=== PATIENT | female | born 1945 | race Two or more races ===

== ENCOUNTER 2018-10-06 12:16 | Emergency (ER) | payer MEDICARE, BC ==
[2018-10-06 12:51] VITALS: BP 125/73
--- NOTE | 2018-10-06 13:21 | UC ---
Lower Extremity/Ankle HPI - HPI Summary HPI Summary: 72 yo female with left calf pain x 1week. No trauma. Onset after bending over in garden picking asparagus no CP or sob pain worse proximal lat calf and radiates to foot - History of Current Complaint Chief Complaint: UCLowerExtremity Stated Complaint: SP FALL-LT LEG PAIN Time Seen by Provider: 10/06/18 12:31 Hx Obtained From: Patient Onset/Duration: Gradual Onset, Lasting Days Severity Initially: Mild Severity Currently: Severe Pain Intensity: 10 - with wt bearing Pain Scale Used: 0-10 Numeric Aggravating Factor(s): Standing, Ambulation Alleviating Factor(s): Rest Able to Bear Weight: Yes Legs: 1 - pain 2 - radiation - Allergies/Home Medications Allergies/Adverse Reactions: Allergies Allergy/AdvReac Type Severity Reaction Status Date / Time Sulfa (Sulfonamide Allergy Vomiting Verified 10/06/18 12:42 Antibiotics) Home Medications: Home Medications Antidepressant Med 1 tab PO DAILY 10/06/18 [History] Linaclotide [Linzess] 72 mcg PO DAILY 10/06/18 [History Confirmed 10/06/18] Omeprazole 20 mg PO DAILY 10/06/18 [History Confirmed 10/06/18] hydrOXYzine HCL TAB* [Atarax 10 MG TAB*] 10 mg PO TID PRN 10/06/18 [History Confirmed 10/06/18] PMH/Surg Hx/FS Hx/Imm Hx Previously Healthy: Yes - DDD/DJD, sciatica GI/ History: Gastroesophageal Reflux - Surgical History Surgical History: Yes Surgery Procedure, Year, and Place: hysterectomy. [facility]. appy - Family History Known Family History: Positive: Hypertension - Social History Alcohol Use: None Alcohol Amount: none in 37 years Substance Use Type: None Smoking Status (MU): Former Smoker When Did the Patient Quit Smoking/Using Tobacco: 33 years ago Review of Systems All Other Systems Reviewed And Are Negative: Yes Constitutional: Positive: Negative Skin: Positive: Negative, Rash ENT: Positive: Negative Respiratory: Positive: Negative Cardiovascular: Positive: Negative Gastrointestinal: Positive: Negative Genitourinary: Positive: Negative Motor: Positive: Negative Neurovascular: Positive: Negative Musculoskeletal: Positive: Myalgia Neurological: Positive: Negative Psychological: Positive: Negative Physical Exam Triage Information Reviewed: Yes Appearance: Well-Appearing, No Pain Distress, Well-Nourished Vital Signs: Initial Vital Signs Temp 98.4 F 10/06/18 12:44 Pulse 75 10/06/18 12:44 Resp 18 10/06/18 12:44 BP 125/73 10/06/18 12:44 Pulse Ox 99 10/06/18 12:44 Vital Signs Reviewed: Yes Eyes: Positive: Conjunctiva Clear ENT: Positive: Normal ENT inspection. Negative: Nasal congestion, Nasal drainage, Trismus, Muffled voice, Hoarse voice Neck: Positive: Supple, Nontender, No Lymphadenopathy Respiratory: Positive: Lungs clear, Normal breath sounds, No respiratory distress, No accessory muscle use Cardiovascular: Positive: RRR, No Murmur Musculoskeletal: Positive: Other: - left calf swollen and tender /acchiles intact Neurological Exam: Normal Neurological: Positive: Alert Psychological Exam: Normal Skin Exam: Normal Diagnostics - Radiology No standard instances Radiology Interpretation Completed By: Radiologist Summary of Radiographic Findings: doppler left leg- no dvt Lower Extremity Course/Dx - Differential Dx/Diagnosis Provider Diagnosis: Strain of gastrocnemius muscle of left lower extremity Discharge - Sign-Out/Discharge Documenting (check all that apply): Patient Departure All imaging exams completed and their final reports reviewed: Yes - Discharge Plan Condition: Stable Disposition: HOME Patient Education Materials: Muscle Strain (ED) Referrals: Biju Wilkins MD [Medical Doctor] - If Needed Additional Instructions: cam boot you can order a CHO PAT calf sleeve on line....I think it will help ice twice daily tylenol - Billing Disposition and Condition Condition: STABLE Disposition: Home
== END 2018-10-06 14:23 | disposition home or self-care (01) ==
LOC: UCCORT 12:16
DX: S86.112A Strain of other muscle(s) and tendon(s) of posterior muscle group at lower leg level, left leg, initial encounter (principal); X50.1XXA Overexertion from prolonged static or awkward postures, initial encounter; Y93.H2 Activity, gardening and landscaping; Y92.017 Garden or yard in single-family (private) house as the place of occurrence of the external cause; M19.90 Unspecified osteoarthritis, unspecified site; M54.30 Sciatica, unspecified side; K21.9 Gastro-esophageal reflux disease without esophagitis; Z88.2 Allergy status to sulfonamides; Z87.891 Personal history of nicotine dependence
CPT/HCPCS: 99212; G0463

== ENCOUNTER 2019-06-22 14:02 | Emergency (ER) | payer MEDICARE, BC ==
--- OUTSIDE RECORDS SUMMARY | 2019-06-22 14:13 | XMS REPORT | Summary of Care ---
:1945 Author Organization [facility] Address [address] [place] [id number] Care Team Providers Name Role Phone Jalen Best MD Primary Care Provider Reason for Visit Reason Comments New Patient Joint Pain Diagnostic Medical (Routine) Status Reason Specialty Diagnoses / Referred By Referred To Contact Procedures Contact Authorized Rheumatology Diagnoses Polymyalgia rheumatica [facility] Rheumatology Jalen Sevilla MD [address] [phone] Phone: Encounter Details Date Type Department Care Team Description 05/04/2019 Office Visit [facility] Rheumatology Mia Sweeney MD Polymyalgia rheumatica (Primary Dx); [address] [place] [address] Current chronic [place] [address] [facility] Floor [phone] [place] [address] [phone] Allergies Active Allergy Reactions Severity Noted Date Comments Sulfa Antibiotics 03/19/2019 documented as of this encounter (statuses as of 05/04/2019) Medications Medication Sig Dispensed Refills Start Date End Date Status acetaminophen, TYLENOL, Take 650 mg by 0 Active tablet 325 MG tablet mouth every 6 (six) hours as needed for Pain albuterol (PROVENTIL Inhale 2 puffs 0 Active HFA;VENTOLIN HFA) 108 (90 into the lungs Base) MCG/ACT inhaler every 6 (six) hours as needed for Wheezing Vitamin D-3 Take 2,000 0 Active (CHOLECALCIFEROL) 1000 Units by mouth units CAPS daily tizanidine (ZANAFLEX) 4 Take 4 mg by 0 Active MG tablet mouth every 6 (six) hours as needed venlafaxine (EFFEXOR-XR) Take 150 mg by 0 Active 150 MG 24 hr capsule mouth daily Calcium Carbonate Take by mouth 0 Active (CALCIUM 600 PO) daily hydrOXYzine (ATARAX) 10 Take 10 mg by 0 Active MG tablet mouth every 6 (six) hours as needed for Itching meclizine (ANTIVERT) 25 Take 25 mg by 0 Active MG tablet mouth Four times daily as needed Multiple Vitamin Take 1 tablet 0 Active (MULTIVITAMIN) tablet by mouth daily sucralfate (CARAFATE) 1 g Take 1 g by 0 Active tablet mouth Four times daily omeprazole (PRILOSEC) 20 Take 20 mg by 0 Active MG capsule mouth Twice Daily methylPREDNISolone 4 MG Take 1 tablet 30 tablet 0 05/04/2019 06/03/2019 Active Oral Tablet by mouth daily (MEDROL)Indications: Polymyalgia rheumatica documented as of this encounter (statuses as of 05/04/2019) Active Problems Problem Noted Date Polymyalgia rheumatica 05/04/2019 Current chronic use of systemic steroids 05/04/2019 documented as of this encounter (statuses as of 05/04/2019) Social History Tobacco Use Types Packs/Day Years Used Date Former Smoker Cigarettes 0 Smokeless Tobacco: Former User Tobacco Cessation: Counseling Given: No Alcohol Use Drinks/Week oz/Week Comments Not Currently Sex Assigned at Date Recorded Not on file Job Start Date Occupation Industry Not on file Not on file Not on file Travel History Travel Start Travel End No recent travel history available. documented as of this encounter Last Filed Vital Signs Vital Sign Reading Time Taken Comments Blood Pressure 135/85 05/04/2019 11:53 AM EST Pulse 76 05/04/2019 11:53 AM EST Temperature 36.6 05/04/2019 11:53 AM EST C (97.9 F) Respiratory Rate 16 05/04/2019 11:53 AM EST Oxygen Saturation 96% 05/04/2019 11:53 AM EST Inhaled Oxygen Concentration - - Weight 88 kg (194 lb) 05/04/2019 11:53 AM EST Height 157.5 cm (5' 2") 05/04/2019 11:53 AM EST Body Mass Index 35.48 05/04/2019 11:53 AM EST documented in this encounter Progress Notes Mia Sweeney MD - 05/04/2019 12:00 PM EST Subjective: Patient ID: Amber Monroy is a 73 y.o. female. Chief Complaint: joint pain, PMR HPI 73 year old female referred for PMR, intolerant to prednisone. She was having shoulder and arm pain. She was having trouble getting up from a seated position. Trouble lifting arms up above head. She was then started on prednisone 20mg daily and felt significantly better within 24 hours. She has joint pains in b/l shoulders, radiates down her arm and into hands. No joint swelling. Morning stiffness in the hands for about 2-3 hours. Denies any photosensitivity, oral or nasal ulcers, rashes, alopecia, dry eyes. + dry mouth. Denies any DVT/PE, skin psoriasis, gout. No raynaud's. Past Medical History: Diagnosis Date Anxiety Arthritis Asthma Depression Diabetes mellitus GERD (gastroesophageal reflux disease) Past Surgical History: Procedure Laterality Date APPENDECTOMY CHOLECYSTECTOMY COLONOSCOPY HYSTERECTOMY Family History Problem Relation Age of Onset COPD Father Diabetes Father Social History Tobacco Use Smoking status: Former Smoker Packs/day: 0.00 Types: Cigarettes Smokeless tobacco: Former User Substance Use Topics Alcohol use: Not Currently Drug use: Never Allergies Allergen Reactions Sulfa Antibiotics Current Outpatient Medications Medication Sig Dispense Refill acetaminophen, TYLENOL, tablet 325 MG tablet Take 650 mg by mouth every 6 (six) hours as needed for Pain albuterol (PROVENTIL HFA;VENTOLIN HFA) 108 (90 Base) MCG/ACT inhaler Inhale 2 puffs into the lungs every 6 (six) hours as needed for Wheezing Calcium Carbonate (CALCIUM 600 PO) Take by mouth daily hydrOXYzine (ATARAX) 10 MG tablet Take 10 mg by mouth every 6 (six) hours as needed for Itching meclizine (ANTIVERT) 25 MG tablet Take 25 mg by mouth Four times daily as needed Multiple Vitamin (MULTIVITAMIN) tablet Take 1 tablet by mouth daily omeprazole (PRILOSEC) 20 MG capsule Take 20 mg by mouth Twice Daily sucralfate (CARAFATE) 1 g tablet Take 1 g by mouth Four times daily tizanidine (ZANAFLEX) 4 MG tablet Take 4 mg by mouth every 6 (six) hours as needed venlafaxine (EFFEXOR-XR) 150 MG 24 hr capsule Take 150 mg by mouth daily Vitamin D-3 (CHOLECALCIFEROL) 1000 units CAPS Take 2,000 Units by mouth daily No current facility-administered medications for this visit. Review of Systems Constitutional: Negative for chills and malaise/fever. +fatigue HENT: Negative for sore throat. Eyes: Negative for double vision, pain and discharge. +blurry vision in left eye due to floaters, resolves with glasses Respiratory: Negative for cough, hemoptysis, sputum production and shortness of breath. Cardiovascular: Negative for lower extremity swelling, chest pain and palpitations. Gastrointestinal: Negative for heartburn, nausea, vomiting, abdominal pain constipation, and diarrhea. Genitourinary: Negative for dysuria, hematuria and flank pain. Musculoskeletal: +joint pains. Skin: Negative for rash. Neurological: Negative for dizziness, sensory change, speech change, focal weakness, loss of consciousness, tingling/numbness and weakness. Endo/Heme/Allergies: Does not bruise/bleed easily. Objective: Vitals: 05/04/19 1153 BP: 135/85 Pulse: 76 Resp: 16 Temp: 36.6 C (97.9 F) SpO2: 96% Physical Exam Constitutional: Alert and oriented x3, no acute distress HEENT: Normocephalic, atraumatic, PERRLA Cardiovascular: Regular rate and rhythm, S1 normal and S2 normal. Lungs: Clear to auscultation b/l. No wheezing Abdomen: Soft, non-tender Musculoskeletal: Decreased range of motion of b/l shoulders Neurological: alert and oriented to person, place, and time. Extremities: no edema Skin: Skin is warm and dry. Assessment: 73 year old female referred for PMR, intolerant to prednisone. She was having shoulder and arm pain. She was having trouble getting up from a seated position. Trouble lifting arms up above head. She was then started on prednisone 20mg daily and felt significantly better within 24 hours. Plan: 1. Joint pains secondary to PMR -relief with prednisone. Could not tolerate prednisone due to GI upset. Does not want to take methotrexate. -We can try medrol 4mg daily, she does not want anything higher than 5mg of prednisone -Recommend to take omeprazole 20mg BID as it was recommended in the past - methylPREDNISolone 4 MG Oral Tablet (MEDROL); Take 1 tablet by mouth daily - ALT; Future - AST; Future - CBC and Differential; Future - CCP antiBody; Future - Creatinine with GFR; Future - C-reactive protein; Future - Sedimentation rate, automated; Future - Rheumatoid factor; Future 2. Current chronic use of systemic steroids -Recommend calcium and vitamin d. Side effects of medrol explained including AVN -Plan on care home steroid use - Activities as tolerated. - Fall precautions emphasized. - Diet: low carb/low fat, more greens/vegetables, adequate hydration - Encouraged to maintain good sleep hygiene - Continue other medications as prescribed by PCP and other specialist. - DVT precautions especially long distance travel -RTC: 6-8 weeks documented in this encounter Plan of Treatment Date Type Specialty Care Team Description 06/22/2019 Office Visit Rheumatology Mia Sweeney MD [address] [place] [address] [address] [place] [address] [phone] Name Type Priority Associated Diagnoses Order Schedule ALT Lab Routine Polymyalgia rheumatica 1 Occurrences starting 05/04/2019 until 11/02/2019 AST Lab Routine Polymyalgia rheumatica 1 Occurrences starting 05/04/2019 until 11/02/2019 CBC and Differential Lab Routine Polymyalgia rheumatica 1 Occurrences starting 05/04/2019 until 11/01/2019 CCP antiBody Lab Routine Polymyalgia rheumatica 1 Occurrences starting 05/04/2019 until 11/02/2019 Creatinine with GFR Lab Routine Polymyalgia rheumatica 1 Occurrences starting 05/04/2019 until 11/03/2019 C-reactive protein Lab Routine Polymyalgia rheumatica 1 Occurrences starting 05/04/2019 until 11/03/2019 Sedimentation rate, Lab Routine Polymyalgia rheumatica 1 Occurrences starting automated 05/04/2019 until 11/04/2019 Rheumatoid factor Lab Routine Polymyalgia rheumatica 1 Occurrences starting 05/04/2019 until 11/04/2019 documented as of this encounter Results Not on filedocumented in this encounter Visit Diagnoses Diagnosis Polymyalgia rheumatica - Primary Current chronic use of systemic steroids documented in this encounter
--- OUTSIDE RECORDS SUMMARY | 2019-06-22 14:13 | XMS REPORT | Continuity of Care Document ---
:1945 External Reference #:[id number] Author Name Jalen Best MD Address [address] [place] [address] Care Team Providers Name Role Phone Jose Deluca DR Care Team Information Book Author [phone] Care Team Information Book Author [phone] [facility] Rheumatology Care Team Information Book Author [phone] Problems Active Problems Provider Date Gastroesophageal reflux disease Jalen Best MD Onset: 09/06/2004 Pure hypercholesterolemia Jalen Best MD Onset: 09/06/2004 Anxiety state Jalen Best MD Onset: 09/06/2004 Peptic ulcer without hemorrhage, without Jalen Best MD Onset: 01/21 perforation AND without obstruction Localized, primary osteoarthritis of the Jalen Best MD Onset: 07/01 lower leg Obstructive sleep apnea syndrome Jalen Best MD Onset: 03/10/2010 Family history of diabetes mellitus Jalen Best MD Onset: 02/08/2014 Urgent desire to urinate Jalen Best MD Onset: 02/08/2014 Benign neoplasm of colon Jalen Best MD Onset: 02/08/2014 Intrinsic asthma without status asthmaticus Jalen Best MD Onset: Obesity Jalen Best MD Onset: 01/15/2011 Allergic rhinitis Jalen Best MD Onset: 01/21/2005 Moderate recurrent major depression Jalen Best MD Onset: 01/21/2005 Irritable bowel syndrome Jalen Best MD Onset: 01/21/2005 Vitamin D deficiency Jalen Best MD Onset: 08/25/2015 Osteopenia Jalen Best MD Onset: 09/09/2016 Polymyalgia rheumatica Jalen Best MD Onset: 02/03/2019 Social History Type Date Description Comments Sex Unknown ETOH Use Has consumed alcohol in Past heavy the past Tobacco Use Start: Unknown End: Patient is a former smoker Quit 1983, was 1 PPD Unknown Smoking Status Reviewed: 03/04/18 Patient is a former smoker Quit 1983, was 1 PPD Allergies, Adverse Reactions, Alerts Active Allergies Reaction Severity Comments Date Sulfa Drugs 06/15/2014 Medications Active Medications SIG Qnty Indications Ordering Provider Date Acetaminophen ER 2 by mouth otc M35.3 Nasir, 02/18/2019 650mg twice a day as MD Jalen Tablets ER needed for pain Albuterol Sulfate HFA 2 puffs every 3 8.500gm R06.00 Nasir, 2018 hours as needed MD Jalen 108(90Base) mcg/Act Aerosol J45.909 Vitamin D3 1 by mouth every otc E55.9 Jalen Best, 09/11/2018 2000Unit day Capsules Tizanidine HCL take 1 capsule by 30caps M54.5 Jalen Best, 2018 4mg mouth at bedtime Capsules if needed for muscle spasm or back pain Venlafaxine HCL ER 1 by mouth every 90caps F33.1 Jalen Best, 10/2016 150mg day Caps ER 24HR F41.9 F41.1 Calcium 600 1 pill once a day OTC M85.89 Jalen Best, 03/01/2017 600mg Tablets Hydroxyzine HCL 1 by mouth four 50tabs F41.9 Jalen Best, 2010 10mg times a day as Tablets needed for anxiety F41.1 Meclizine HCL 1 by mouth four 90Tabs Jalen Best, 07/02/2007 25mg times a day as Tablets needed dizziness Multivitamins 1 PO qd Unknown Chewtabs Sucralfate Dissolve In Water, K21.9 Joe Gonzalez MD Powder Take By Mouth 4 Times A Day as Needed For Heartburn Omeprazole 1 by mouth twice 180caps K21.9 Jalen Best, 20mg Capsules day MD DR Jason Wilkinson Unknown Capsules History Medications Prednisone take 1 pill once 100tabs M35.3 Nasir, 02/03/2019 - 5mg daily w/ food, MD Jalen 03/17/2019 Tablets or as directed Prednisone 1 pill by mouth 30tabs M35.3 Nasir, 01/22/2019 - 20mg once a day with MD Jalen 02/03/2019 Tablets food, or as directed Immunizations CPT Code Status Date Vaccine Reaction Lot # [id number] Given 03/24/2019 Influenza Vaccine, Inactivated, Subunit, [place] [address] Given 03/31/2018 Fluzone Highdose Age 65 And Over Preservative & Antibiotic Free 57980 Given 03/20/2017 Fluzone Highdose Age 65 And Over [facility] Preservative & Antibiotic Free 35529 Given 03/31/2015 Fluzone Highdose Age 65 And Over [facility] Preservative & Antibiotic Free 67758 Given 02/28/2015 Prevnar 13 Pneumococal Conjugate Vaccine [id number] 45544 Given 04/26/2014 Afluria Or Fluvirin Flu Vac Intramuscular 29807 Given 04/22/2013 Zoster (Zostavax) 06097 Given 02/05/2013 Pneumococcal 23 Immunization Adult Or Immunosuppressed Patient 44133 Given 06/13/2009 Administration Swine Flu Vaccine H1N1 69396 Given 02/23/1996 Immunization Td 7 Yrs Or Older 94828 Refused 03/04/2018 Fluzone Highdose Age 65 And Over WILL GET AT PHARMACY Preservative & Antibiotic Free Vital Signs Date Vital Result Comment 05/12/2019 3:59pm Body Temperature 97.2 F Weight 194.00 lb BP Systolic Lying Down 130 mmHg HR 72 BP Diastolic Lying Down 80 mmHg HR 72 BP Systolic Sitting 132 mmHg HR 72 BP Diastolic Sitting 80 mmHg HR 72 BP Systolic Standing 128 mmHg HR 76 BP Diastolic Standing 78 mmHg HR 76 Height 62 inches 5'2" BMI (Body Mass Index) 35.5 kg/m2 03/17/2019 11:25am Weight 194.00 lb Heart Rate 74 /min BP Systolic 122 mmHg BP Diastolic 80 mmHg Respiratory Rate 18 /min Height 62 inches 5'2" BMI (Body Mass Index) 35.5 kg/m2 Results Test Acquired Date Facility Test Result H/L Range Note Lipid Treatment 03/10/2019 [facility] Cholesterol 196 mg/dL 50-199 1 Triglycerides 157 mg/dL 30-200 HDL 60 mg/dL 35-85 2 Chol/ HDL Ratio 3.3 ratio Low 3.7-5.6 VLDL 31 mg/dL High 2-29 LDL (Calc) 105 mg/dL High 20-99 3 Alt 6 U/L 3-42 Ast 14 U/L 8-42 CBC with Auto Diff-fcmg 03/10/2019 [facility] WBC 4.9 K/uL 4.1-11.0 RBC 4.18 M/uL 4.00-5.40 Hemoglobin 12.1 gm/dL 12.0-16.0 Hematocrit 37.0 % 36.0-47.0 MCV 88.4 fL 80.0-97.0 MCH 28.9 pg 27.0-32.0 MCHC 32.6 g/dL 32.0-36.0 RDW 14.3 % 11.5-14.5 PLT Count 241 K/ul 140-400 MPV 7.9 FL 7.1-10.7 Neutrophil 57.4 % 35.0-75.0 Lymphocyte 30.4 % 16.0-52.0 Monocyte 9.7 % 2.0-10.0 Eosinophil 2.1 % 0.0-5.0 Basophil 0.4 % 0.0-4.0 Abs Neutrophils 2.8 K/uL 2.1-8.0 Abs Lymphocytes 1.5 K/uL 0.8-5.5 Abs Monocytes 0.5 K/uL 0.1-1.0 Abs Eosinophils 0.1 K/uL 0.0-0.5 Abs Basophils 0.0 K/uL 0.0-0.3 Laboratory test 03/10/2019 [facility] Vitamin D 25 21 ng/mL Low 30-100 4 finding Hydroxy Basic (BMP) 03/10/2019 [facility] Sodium 142 mmol/L 135-146 5 Potassium 4.1 mmol/L 3.5-5.2 Chloride# 105 mmol/L 97-110 6 Carbon Dioxide 30 mmol/L 24-34 Glucose 94 mg/dL 70-105 BUN 16 mg/dL 6-26 Creatinine 0.8 mg/dL 0.5-1.4 Calcium 9.5 mg/dL 8.5-10.5 7 Female Egfr 72 >60 8 Male Egfr 89 >60 9 Anion Gap 7 mmol/L 5-15 10 [facility] test [facility]/hr High 0-20 CRP (C-Reactive) 1.81 mg/dL High 0.00-0.75 CBC with Auto Diff-fcmg [facility].7 K/uL 4.1-11.0 RBC 4.44 M/uL 4.00-5.40 Hemoglobin 13.0 gm/dL 12.0-16.0 Hematocrit 39.5 % 36.0-47.0 MCV 88.9 fL 80.0-97.0 MCH 29.3 pg 27.0-32.0 MCHC 33.0 g/dL 32.0-36.0 RDW 14.3 % 11.5-14.5 PLT Count 224 K/ul 140-400 MPV 7.6 FL 7.1-10.7 Neutrophil 53.2 % 35.0-75.0 Lymphocyte 36.4 % 16.0-52.0 Monocyte 8.0 % 2.0-10.0 Eosinophil 2.0 % 0.0-5.0 Basophil 0.4 % 0.0-4.0 Abs Neutrophils 2.5 K/uL 2.1-8.0 Abs Lymphocytes 1.7 K/uL 0.8-5.5 Abs Monocytes 0.4 K/uL 0.1-1.0 Abs Eosinophils 0.1 K/uL 0.0-0.5 Abs Basophils 0.0 K/uL 0.0-0.3 Laboratory test finding [facility] mm/hr High 0-20 CRP (C-Reactive) 1.19 mg/dL High 0.00-0.75 CBC with Auto Diff-fcmg [facility] 7.6 K/uL 4.1-11.0 11 RBC 4.51 M/uL 4.00-5.40 Hemoglobin 13.1 gm/dL 12.0-16.0 Hematocrit 39.7 % 36.0-47.0 MCV 88.0 fL 80.0-97.0 MCH 29.0 pg 27.0-32.0 MCHC 32.9 g/dL 32.0-36.0 RDW 13.3 % 11.5-14.5 PLT Count 263 K/ul 140-400 MPV 8.2 FL 7.1-10.7 Neutrophil 70.3 % 35.0-75.0 Lymphocyte 19.9 % 16.0-52.0 Monocyte 7.1 % 2.0-10.0 Eosinophil 1.7 % 0.0-5.0 Basophil 1.0 % 0.0-4.0 Abs Neutrophils 5.3 K/uL 2.1-8.0 Abs Lymphocytes 1.5 K/uL 0.8-5.5 Abs Monocytes 0.5 K/uL 0.1-1.0 Abs Eosinophils 0.1 K/uL 0.0-0.5 Abs Basophils 0.1 K/uL 0.0-0.3 Laboratory test finding 01/20/2019 [place] [facility] 41 mm/hr High 0-20 CRP (C-Reactive) 0.85 mg/dL High 0.00-0.75 TSH 1.12 uIU/mL 0.35-4.94 1 03/14 preOV 2 Per NCEP ATP III Guidelines: Results lower than 40 mg/dL are suggestive of increased risk for coronary artery disease. Results > or = to 60 mg/dL are considered a negative risk factor. 3 Per NCEP ATP III Guidelines: Normal Population <130 Patients with medical conditions: CHD/DM Optimal: <100 Borderline high: 130-159 High: 160-189 Very high: >189 4 Clinical Guidelines for recommended serum 25(OH)Vitamin D Deficient at less than 20 ng/mL Insufficient at 20 to <30 ng/mL Sufficient at 30-100 ng/mL Toxicity at greater than 100 ng/mL 5 Updated reference range on new analyzer 6 Updated reference range on new analyzer 7 Updated reference range 09-24-2018 8 Concerning GFR Guidelines for Americans: Normal function or mild renal disease, if clinically at risk: >/= 60 mL/min Moderately decreased: 30-59 Severely decreased: 15-29 Renal failure: <15 There is reduced accuracy above 60ml/min/1.73 m squared, but the numeric value may be clinically useful in the near 60 range 9 Concerning GFR Guidelines: Normal function or mild renal disease, if clinically at risk: >/= 60 mL/min Moderately decreased: 30-59 Severely decreased: 15-29 Renal failure: <15 There is reduced accuracy above 60ml/min/1.73 m squared, but the numeric value may be clinically useful in the near 60 range Glomerular Filtration Rate (GFR) is estimated based on the CKD-EPI equation, which assumes a steady state for creatinine as recommended by the National Kidney Disease Education Program in conjunction with the National Institutes of Health and the National Kidney Foundation. Clinical conditions in which it may be necessary to measure GFR by using clearance methods include extremes of age and body size, severe malnutrition or obesity, diseases of skeletal muscle, paraplegia or quadriplegia, vegetarian diet, rapidly changing kidney function, and calculation of the dose of potentially toxic drugs that are excreted by the kidneys. 10 Updated Reference Range 11 Draw 01/20 after OV Procedures Date Code Description Status 03/17/2019 01746 Brief Emotional/Behav Assessment W/ Scoring Doc Per Completed Standard Inst 09/08/2018 [id number] Bone Mineral Density Test Completed 09/08/2018 [id number] Mammogram Completed 02/04/2018 [id number] Colonoscopy Completed 09/03/2017 [id number] Mammogram Completed 09/03/2016 [id number] Bone Mineral Density Test Completed 09/08/2014 [id number] Mammogram Completed Medical Devices Description No Information Available Encounters Type Date Location Provider Dx Diagnosis Office Visit 03/17/2019 [facility] Nasir, M35.3 Polymyalgia rheumatica 11:30a MD Jalen K21.9 Gastro-esophageal reflux disease without esophagitis G47.33 Obstructive sleep apnea (adult) (pediatric) E55.9 Vitamin D deficiency, unspecified M85.80 Oth disrd of bone density and structure, unspecified site J45.909 Unspecified asthma, uncomplicated F33.1 Major depressive disorder, recurrent, moderate J30.9 Allergic rhinitis, unspecified E66.9 Obesity, unspecified K27.9 Peptic ulc, site unsp, unsp as ac or chr, w/o hemor or perf E78.00 Pure hypercholesterolemia, unspecified Z00.00 Encntr for general adult medical exam w/o abnormal findings Z79.899 Other long-term (current) drug therapy Z68.35 Body mass index (BMI) 35.0-35.9, adult Office Visit 02/18/2019 10:45a [facility] Jalen Best M35.3 Polymyalgia rheumatica K21.9 Gastro-esophageal reflux disease without esophagitis Office Visit 02/03/2019 10:45a [facility] Jalen Best M35.3 Polymyalgia rheumatica Office Visit 01/20/2019 10:45a [facility] Jalen Best M35.3 Polymyalgia rheumatica Z68.35 Body mass index (BMI) 35.0-35.9, adult Assessments Date Code Description Provider 05/12/2019 R11.0 Nausea Jalen Best MD 05/12/2019 M35.3 Polymyalgia rheumatica Jalen Best MD 05/12/2019 K21.9 Gastro-esophageal reflux disease without Jalen Best MD esophagitis 05/12/2019 Z68.35 Body mass index (BMI) 35.0-35.9, adult Jalen Best MD 03/17/2019 M35.3 Polymyalgia rheumatica Jalen Best MD 03/17/2019 K21.9 Gastro-esophageal reflux disease without Jalen Best MD esophagitis 03/17/2019 G47.33 Obstructive sleep apnea (adult) Jalen Best MD (pediatric) 03/17/2019 E55.9 Vitamin D deficiency, unspecified Jalen Best MD 03/17/2019 M85.80 Other specified disorders of bone density Jalen Best MD and structure, unspecified site 03/17/2019 J45.909 Unspecified asthma, uncomplicated Jalen Best MD 03/17/2019 F33.1 Major depressive disorder, recurrent, Jalen Best MD moderate 03/17/2019 J30.9 Allergic rhinitis Jalen Best MD 03/17/2019 E66.9 Obesity, unspecified Jalen Best MD 03/17/2019 K27.9 Peptic ulcer without hemorrhage, without Jalen Best MD perforation And without obstruction 03/17/2019 E78.00 Pure hypercholesterolemia Jalen Best MD 03/17/2019 Z00.00 Encounter for general adult medical Jalen Best MD examination without abnormal findings 03/17/2019 Z79.899 Other intermediate accountant (current) drug therapy Jalen Best MD 03/17/2019 Z68.35 Body mass index (BMI) 35.0-35.9, adult Jalen Best MD 03/10/2019 E78.00 Pure hypercholesterolemia, unspecified Jalen Best MD 03/10/2019 E78.00 Pure hypercholesterolemia, unspecified Schedule, Laboratory 03/10/2019 G47.33 Obstructive sleep apnea (adult) Jalen Best MD (pediatric) 03/10/2019 G47.33 Obstructive sleep apnea (adult) Schedule, Laboratory (pediatric) 03/10/2019 E55.9 Vitamin D deficiency, unspecified Jalen Best MD 03/10/2019 E55.9 Vitamin D deficiency, unspecified Schedule, Laboratory 03/10/2019 M85.80 Other specified disorders of bone density Jalen Best MD and structure, unspecified site 03/10/2019 M85.80 Other specified disorders of bone density Schedule, Laboratory and structure, unspecified site 03/10/2019 M35.3 Polymyalgia rheumatica Jalen Best MD 03/10/2019 M35.3 Polymyalgia rheumatica Schedule, Laboratory 03/10/2019 E78.00 Pure hypercholesterolemia, unspecified [facility] 03/10/2019 G47.33 Obstructive sleep apnea (adult) [facility] (pediatric) 03/10/2019 E55.9 Vitamin D deficiency, unspecified [facility] 03/10/2019 M85.80 Oth disrd of bone density and structure, [facility] unspecified site 03/10/2019 M35.3 Polymyalgia rheumatica [facility] 02/18/2019 M35.3 Polymyalgia rheumatica Jalen Best MD 02/18/2019 K21.9 Gastro-esophageal reflux disease without Jlaen Best MD esophagitis 02/17/2019 M35.3 Polymyalgia rheumatica Jalen Best MD 02/17/2019 M35.3 Polymyalgia rheumatica Schedule, Laboratory 02/17/2019 M35.3 Polymyalgia rheumatica [facility] 02/03/2019 M35.3 Polymyalgia rheumatica Jalen Best MD 01/20/2019 M35.3 Polymyalgia rheumatica Jalen Best MD 01/20/2019 M35.3 Polymyalgia rheumatica [facility] 01/20/2019 E78.00 Pure hypercholesterolemia, unspecified [facility] 01/20/2019 M35.3 Polymyalgia Jalen Best MD 01/20/2019 Z68.35 Body mass index (BMI) 35.0-35.9, adult Jalen Best MD 01/20/2019 Z68.35 Body mass index (BMI) 35.0-35.9, [facility] 01/20/2019 Z68.35 Body mass index (BMI) 35.0-35.9, adult Jalen Best MD 01/20/2019 M35.3 Polymyalgia rheumatica Schedule, Laboratory 01/20/2019 Z68.35 Body mass index (BMI) 35.0-35.9, adult Schedule, Laboratory Plan of Treatment Future Appointment(s):07/27/2019 8:45 am - Schedule, Laboratory at [facility]2019 11:30 am - Jalen Best MD at [facility]05/12/2019 - Jalen Best, MDR11.0 NauseaFollow up:Follow up as hpjcvcsyfS44.3 Polymyalgia xnbdnhhldmK47.9 Gastro-esophageal reflux disease without brbuyxmabgsH21.35 Body mass index (BMI) 35.0-35.9, adult Functional Status Description No Information Available Mental Status Description No Information Available Referrals Refer to Reason for Referral Status Appt Date [facility] Rheumatology Evaluate PMR: intolerant to Prednisone Faxed Closed all forms for provider to review in order to get an apt scheduled. IRWIN 03/17 Called and spoke to Soheila who stated that once they get the refferal they will call and let us know when the pt has been scheduled. IRWIN 03/[address] [place], [place] [address] [phone]
[2019-06-22 14:37] VITALS: BP 145/83
--- NOTE | 2019-06-22 15:28 | UC ---
Shoulder Pain HPI - HPI Summary HPI Summary: Pt presents with c/o right shoulder pain that began ~ 1 year ago Pt has been seen by PCP who then referred pt to [facility] Rheumatology. at [facility] rheum recommended and prescribed "arthritis drug" but pt does not want to take the medication because she thinks it has too many adverse side effects such as cancer. Pt will take prednisone but does not believe it is arthritis, thinks it is her "muscles and tendons" and wants and xray of her right shoulder. - History of Current Complaint Chief Complaint: UCUpperExtremity Stated Complaint: RT SHOULDER PAIN Time Seen by Provider: 06/22/19 15:12 Hx Obtained From: Patient ?: No Onset/Duration: Gradual Onset, Lasting Weeks Timing: Constant Severity Initially: Mild Severity Currently: Moderate Location Of Pain: Is Discrete @ - right shoulder Pain Intensity: 6 Character: Dull, Aching, Stiffness Aggravating Factor(s): Movement, Lifting, Extension, Internal Rotation, External Rotation, Abduction Alleviating Factor(s): Rest, OTC Meds, Other Associated Signs And Symptoms: Positive: Negative Related History: Dominant Hand Right - Risk Factors Non-Orthopedic Risk Factor: Negative DVT Risk Factors: Negative Septic Arthritis Risk Factor: Extremes of Age - Allergies/Home Medications Allergies/Adverse Reactions: Allergies Allergy/AdvReac Type Severity Reaction Status Date / Time Sulfa (Sulfonamide Allergy Vomiting Verified 06/22/19 14:37 Antibiotics) Home Medications: Home Medications predniSONE [Prednisone 5 MG TAB] 5 mg PO ONCE PRN 06/22/19 [History Confirmed ] PMH/Surg Hx/FS Hx/Imm Hx Previously Healthy: Yes GI/ History: Gastroesophageal Reflux - Surgical History Surgical History: Yes Surgery Procedure, Year, and Place: hysterectomy. [facility]itt[facility]. appy - Family History Known Family History: Positive: Hypertension - Social History Occupation: Retired Lives: With Family Alcohol Use: None Alcohol Amount: none in 37 years Substance Use Type: None Smoking Status (MU): Former Smoker Have You Smoked in the Last Year: No When Did the Patient Quit Smoking/Using Tobacco: 33 years ago - Immunization History Vaccination Up to Date: Yes Review of Systems All Other Systems Reviewed And Are Negative: Yes Constitutional: Positive: Negative Skin: Positive: Negative Eyes: Positive: Negative ENT: Positive: Negative Respiratory: Positive: Negative Cardiovascular: Positive: Negative Gastrointestinal: Positive: Negative Genitourinary: Positive: Negative Motor: Positive: Decreased ROM - pain with ROM Neurovascular: Positive: Negative Musculoskeletal: Positive: Arthralgia, Myalgia Neurological: Positive: Negative Psychological: Positive: Negative Is Patient Immunocompromised?: No Physical Exam Triage Information Reviewed: Yes Appearance: Well-Appearing Vital Signs: Initial Vital Signs Temp 98.2 F 06/22/19 14:27 Pulse 75 06/22/19 14:27 Resp 18 06/22/19 14:27 BP 145/83 06/22/19 14:27 Pulse Ox 97 06/22/19 14:27 Vital Signs Reviewed: Yes Eye Exam: Normal ENT: Positive: Hearing grossly normal Respiratory: Positive: No respiratory distress Musculoskeletal: Positive: Strength Intact - at baseline, ROM Intact - at baseline Neurological Exam: Normal Psychological Exam: Normal Skin Exam: Normal Diagnostics - Radiology No standard instances Radiology Interpretation Completed By: Radiologist - negative for fracture positive for: osteopenia and osteoarthritis. See full report on emr Shoulder Course/Dx - Differential Dx/Diagnosis Differential Diagnosis/HQI/PQRI: Arthritis Provider Diagnosis: Osteoarthritis of right shoulder region, Osteopenia of right shoulder Discharge ED - Sign-Out/Discharge Documenting (check all that apply): Patient Departure All imaging exams completed and their final reports reviewed: Yes - Discharge Plan Condition: Stable Disposition: HOME Patient Education Materials: Osteoarthritis (ED), Shoulder Pain (ED) Referrals: Jalen Best MD [Primary Care Provider] - As Soon As Possible - Billing Disposition and Condition Condition: STABLE Disposition: Home
== END 2019-06-22 16:06 | disposition home or self-care (01) ==
LOC: UCCORT 14:02
DX: M19.011 Primary osteoarthritis, right shoulder (principal); M85.811 Other specified disorders of bone density and structure, right shoulder; Z87.891 Personal history of nicotine dependence; Z88.2 Allergy status to sulfonamides
CPT/HCPCS: 99211; G0463